=== PATIENT | female | born 1985 | race Caucasian/White ===

== ENCOUNTER → 2024-09-27 09:16 | Outpatient (CLI) | payer OTHER, SELFPAY ==
[2024-09-27 09:49] LABS: Hemoglobin A1C% w Est Avg Glu 4.7 % (4.0-6.0)
[2024-09-27 09:54] LABS: Cholesterol 167 mg/dL (140-199); HDL Cholesterol 71 mg/dL (40-60); LDL Cholesterol Calculated 74 mg/dL (<100); Triglycerides 108 mg/dL (35-150)
[2024-09-27 10:26] LABS: TSH w/ Reflex to FT4 1.82 uIU/mL (0.47-4.68)
== END ==
PROVIDERS: PCP Family Medicine; Referring Provider Family Medicine; Visit Provider Family Medicine
DX: R63.5 Abnormal weight gain (principal); Z13.1 Encounter for screening for diabetes mellitus; Z13.220 Encounter for screening for lipoid disorders
CPT/HCPCS: 36415; 80061; 83036; 84443